=== PATIENT | female | born 2000 | race Two or more races ===

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

== ENCOUNTER 2020-05-15 23:43 | Emergency (ER) | payer OTHER ==
[2020-05-16 00:06] VITALS: BP 127/76
--- NOTE | 2020-05-16 00:17 | ER Document Report ---
HPI - HPI Patient complains to provider of: Bug bite Time Seen by Provider: 05/16/20 00:09 Pain Level: 2 Context: 19-year-old female with no previous medical problems presents to the emergency room complaining of a possible spider bite to her left posterior thigh happened 30 minutes prior to arrival. Complains of mild itching, no shortness of breath, no difficulty breathing. Denies any pain. Did not take any medications for her symptoms. No history of allergic reactions to insect bites. Denies . Associated Symptoms: None Exacerbated by: Denies Relieved by: Denies Similar symptoms previously: No Recently seen / treated by doctor: No - ROS Systems Reviewed and Negative: Yes All other systems reviewed and negative - CONSTITUTIONAL Constitutional: DENIES: Fever - EENT EENT: DENIES: Sore Throat, Congestion - NEURO Neurology: DENIES: Headache, Weakness - CARDIOVASCULAR Cardiovascular: DENIES: Chest pain - RESPIRATORY Respiratory: DENIES: Trouble Breathing, Coughing - REPRODUCTIVE Reproductive: DENIES: : - MUSCULOSKELETAL Musculoskeletal: DENIES: Extremity pain - DERM Skin Color: Erythema Skin Problems: None Past Medical History - General Information source: Patient - Social History Smoking Status: Never Smoker Chew tobacco use (# tins/day): No Frequency of alcohol use: None Drug Abuse: None Family History: Reviewed & Not Pertinent Vertical Provider Document - CONSTITUTIONAL Agree With Documented VS: Yes Exam Limitations: No Limitations General Appearance: Mild Distress - INFECTION CONTROL TRAVEL OUTSIDE OF THE [place] IN LAST 30 DAYS: No - HEENT HEENT: Atraumatic, Normocephalic - NECK Neck: Normal Inspection, Supple - RESPIRATORY Respiratory: Breath Sounds Normal, No Respiratory Distress, Chest Non-Tender - CARDIOVASCULAR Cardiovascular: Regular Rate, Regular Rhythm, No Murmur - MUSCULOSKELETAL/EXTREMETIES Musculoskeletal/Extremeties: FROM, Non-Tender, No Edema - NEURO Level of Consciousness: Awake, Alert, Appropriate Motor/Sensory: No Motor Deficit, No Sensory Deficit Deep Tendon Reflexes: 2+ Notes: Positive left pedal pulse. Neurovascularly intact. - DERM Integumentary: Warm, Dry Notes: Posterior left thigh with less than 1/4 m centimeter area of erythema. It is not warm or tender to palpation. There is no active discharge or draining noted. Course - Re-evaluation Re-evalutation: 05/16/20 00:13 Patient is asymptomatic secondary to a spider bite to her left posterior thigh. The area is less than 1/4 cm area of erythema. It is not warm or tender to palpation there is no active discharge or draining noted. Counseled on supportive therapy. Patient concerned about a possible brown recluse spider. Patient was counseled to monitor her symptoms. There is no venom medication for a brown recluse spider bite. It is supportive therapy. Recommend ice 20 minutes 3 times a day. Can take Zyrtec, Claritin, or Benadryl for itching as needed. Outpatient follow-up with a primary care physician if not improving in 2 to 3 days. On-call physician was provided. My discharge 05/16/20 00:37 - Vital Signs Vital signs: Temp Pulse Resp BP Pulse Ox 98.2 F 65 18 127/76 H 100 05/16/20 00:09 05/16/20 00:04 05/16/20 00:04 05/16/20 00:04 05/16/20 00:04 Discharge - Discharge Clinical Impression: Insect bite of thigh, left Qualifiers: Encounter type: initial encounter Qualified Code(s): S70.362A - Insect bite (nonvenomous), left thigh, initial encounter Condition: Stable Disposition: HOME, SELF-CARE Instructions: Insect Bites ([facility]) Additional Instructions: Ice 20 minutes 3 times a day. Zyrtec, Claritin, or Benadryl as needed for itching. Recheck with a primary care physician in 2 days. Return to the emergency room for any new or worsening symptoms. Referrals: JHOAN MARTINEZ MD [COMMUNITY BASED STAFF] - Follow up in 3-5 days (Call for recheck appointment in 2 to 3 days.)
== END 2020-05-16 00:17 | disposition home or self-care (01) ==
LOC: ER 23:43
DX: S70.362A Insect bite (nonvenomous), left thigh, initial encounter (principal); W57.XXXA Bitten or stung by nonvenomous insect and other nonvenomous arthropods, initial encounter
CPT/HCPCS: 99282